=== PATIENT | male | born 1975 | race Caucasian/White ===

== ENCOUNTER 2016-10-30 19:52 | Inpatient (IN) | payer OTHER ==
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
[2016-10-31 00:27] VITALS: RESP 16
[2016-10-31] MEDS ORDERED: ZIPRASIDONE 20 MG VIAL IM PRN (00:40)
[2016-10-31] MEDS ORDERED: MAGNESIUM HYDROXIDE 2,400 MG/10 ML CUP PO PRN (00:40)
[2016-10-31] MEDS ORDERED: LORazepam 1 MG TAB PO PRN (00:40)
[2016-10-31] MEDS ORDERED: MAG HYDROX/AL HYDROX/SIMETH 30 ML CUP PO PRN (00:40)
[2016-10-31] MEDS: ACETAMINOPHEN TAB 325 MG TAB PO PRN ×2 (01:15→08:45)
[2016-10-31] MEDS: NICOTINE 14MG/24HR PATCH TRANSDERM SCH (08:44)
[2016-10-31 09:58] LABS: Basophils % (A) 1 %; CH 29.7; CHCM 34.4; Eosinophils # (A) 0.1 k/uL (0-0.7); Eosinophils % (A) 2 %; HCT 45.3 % (39.0-53.0); HDW 2.57; HGB 15.3 gm/dL (13.0-17.5); Luc # (Auto) 0.08; Luc % (Auto) 2; Lymphocytes # (A) 1.4 k/uL (1.0-4.8); Lymphocytes % (A) 24 %; MCH 29.4 pg (25.0-35.0); MCHC 33.8 g/dL (31.0-37.0); MCV 86.9 fL (80.0-100.0); Mean Platelet Volume 6.2; Monocytes # (A) 0.4 k/uL (0-1.0); Monocytes % (A) 6 %; Neutrophils # (A) 3.7 k/uL (1.3-7.7); Neutrophils % (A) 65 %; RBC 5.21 m/uL (4.30-5.90); WBC 5.7 k/uL (3.8-10.6); WBC (Perox) 5.62
[2016-10-31] MEDS: FLUoxetine HCL 20 MG CAP PO SCH (13:03)
--- NOTE | 2016-10-31 21:50 | CONS ---
DATE OF CONSULTATION: 10/31/2016. REASON FOR CONSULTATION: Medical management requested by Dr. Shelton. CONSULTATION: This is a 41-year-old patient of Dr. Shelton who is rather depressed with some suicidal ideation; hence admitted for the same. Patient had multiple traumas in the past; has been diagnosed with sleep apnea ( ) insurance change is not using CPAP machine. No other medical history. REVIEW OF SYSTEMS: CONSTITUTIONAL: None. HEENT: None. RESPIRATORY: None. CARDIOVASCULAR: None. GASTROINTESTINAL: None. GENITOURINARY: None. MUSCULOSKELETAL: None. DERMATOLOGIC: None. HEMATOLOGIC: None. LYMPHATICS: None. PSYCHIATRY: Depressed. NEUROLOGICAL: None. PAST HISTORY: Sleep apnea, MRSA infection. PAST SURGICAL HISTORY: 1. Orthopedic surgery. 2. Fractured nasal bones. 3. ACL, right leg. PAST PSYCHIATRIC HISTORY: Depression, suicide attempt in the past. SOCIAL HISTORY: Rarely smokes. . Works in manufacturing. FAMILY HISTORY: Brother had arrhythmias. HOME MEDICATIONS: None. ALLERGIES: NONE. On examination, temperature 98, pulse 55, respiration 16, blood pressure 115/71, pulse ox 97% on room air. GENERAL APPEARANCE: Well built; BMI of 35.9. Sitting up. Comfortable. EYES: Pupils equal. Conjunctivae normal. HEENT: External appearance of nose and ears normal. Oral cavity normal. NECK: JVD not raised. Mass not palpable. RESPIRATORY: Effort normal. Lungs are clear. CARDIOVASCULAR: First and second sounds normal. No edema. ABDOMEN: Soft, nontender. Liver and spleen not palpable. LYMPHATIC: No lymph node palpable in neck or axillae. PSYCHIATRIC: Alert and oriented x3. Mood and affect normal. INVESTIGATIONS: White count 5.7, hemoglobin 15.3, platelets 331. TSH 0.896. Urine drug screen negative. ASSESSMENT: 1. Obstructive sleep apnea; patient does not use a CPAP machine. 2. Obesity; body mass index of 35.9. 3. Major depression with suicidal ideation. PLAN: Patient should follow up with Dr. Shelton to try to establish and get his CPAP machine. Should see a dietitian for weight loss measures. Go on an 1800-calorie diet. Thank you, Dr. Richter.
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
[2016-11-01 07:50] LABS: ALT 44 U/L (21-72); AST 31 U/L (17-59); Alkaline Phosphatase 62 U/L (38-126); Anion Gap 11 mmol/L; Blood Urea Nitrogen 15 mg/dL (9-20); Calcium 9.8 mg/dL (8.4-10.2); Carbon Dioxide 27 mmol/L (22-30); Chloride 105 mmol/L (98-107); Glucose 87 mg/dL (74-99); Non-African American GFR(MDRD) >60 (>60 ml/min/1.73 sqM); Potassium 4.4 mmol/L (3.5-5.1); Sodium 143 mmol/L (137-145); Total Bilirubin 0.6 mg/dL (0.2-1.3); Total Protein 7.3 g/dL (6.3-8.2)
[2016-11-01] MEDS: NICOTINE 14MG/24HR PATCH TRANSDERM SCH (09:43)
[2016-11-01] MEDS: FLUoxetine HCL 20 MG CAP PO SCH (09:43)
[2016-11-02] MEDS: NICOTINE 14MG/24HR PATCH TRANSDERM SCH (08:24)
[2016-11-02] MEDS: FLUoxetine HCL 20 MG CAP PO SCH (08:24)
--- NOTE | 2016-11-02 13:33 | PN ---
DATE OF SERVICE: 11/01/2016 CHIEF COMPLAINT: The patient was depressed. He was suicidal. His documented in a petition that he had tied a rope in the garage with a plan to hang himself. INTERVAL HISTORY: Patient has been doing fair. He had a quiet evening last evening. He slept fair. It is noted that yesterday he attended groups though he seemed to show low energy and did not make too much effort to participate today. In group he showed a little more responsiveness to the group situation. He has not had any problems with start of Prozac. He did say he had some feelings in the day of a little tremor, more in his body than anywhere else. He said it was not significant and then seemed to pass. He was not sure if it was related to the medicine or just other issues. He noted that he did not sleep that well last night and that may have been part of the problem. He has not had any GI issues other than he does not feel he gets enough food at meals. He was visiting with his when I saw him. The plan is for the couple to have a family meeting with the group social worker tomorrow. I reviewed my history with the patient and . She was in agreement with what was documented. She did not identify any immediate issues of concern beyond what our focus has been during his stay. It is noted that the reported the 2 children are eager for father to return home. The patient has not had change in his general health. He tolerates his psychotropic medication. MENTAL STATUS: Patient sat without restlessness. Eye contact was fair. Psychomotor activity was slow. Speech was monotone. He answered questions with brief responses. His thoughts were clear. He was not spontaneous or interactive. His affect was blunted. His mood reserved. He was somewhat distressed. ASSESSMENT: I will continue the current diagnosis and treatment plan. Continue psychotropic medications the same. He will continue Prozac 20 mg a day. I reviewed treatment issues relating to start up of an antidepressant. Will have a family meeting tomorrow and begin working on discharge planning.
[2016-11-02 17:34] LABS: Appearance,Urine Clear (Clear); Bilirubin,Urine Negative (Negative); Glucose,Urine (UA) Negative (Negative); Ketones,Urine Negative (Negative); Leukocyte Esterase,Urine Negative (Negative); Nitrite,Urine Negative (Negative); Protein,Urine Negative (Negative); Specific Gravity,Urine 1.001 (1.001-1.035); UA Billing (MACRO vs. MICRO) CHEM; Urobilinogen,Urine <2.0 mg/dL (<2.0)
[2016-11-03 06:19] VITALS: BP 117/57; PULSE 71; TEMP 98
[2016-11-03] MEDS: FLUoxetine HCL 20 MG CAP PO SCH (08:41)
[2016-11-03] MEDS: NICOTINE 14MG/24HR PATCH TRANSDERM SCH (08:42)
--- NOTE | 2016-11-03 09:39 | PN ---
DATE OF SERVICE: 11/02/2016 CHIEF COMPLAINT: The patient was depressed. He was suicidal. His documented in a petition that he had a rope tied in the garage with a plan to hang himself. INTERVAL HISTORY: Patient has been doing fairly well, he had a quiet evening last night. He has been attending groups. He slept better through the night. Today he has been up and about. He said that he met with the psychotherapist social worker and they looked at plans towards discharge. The patient does have some limited therapy sessions available through her work, though at this point one option is for them to be referred to her work therapy program and from there, get guided towards further treatment options. The patient says that his is acknowledging some need for therapy, including possibly anger management. Patient himself said he is open for couple's therapy. He seems to be doing better in his mood. He has a better outlook. He comes out in the day area. He will interact with others. He has not had change in his general health. He tolerates his psychotropic medications. MENTAL STATUS: Patient gave good eye contact. Psychomotor activity was a little slow. Speech was somewhat monotone. He answered questions with direct responses. His thoughts were clear. His affect was a little blunted. His mood reserved. He did not appear to be significantly distressed. ASSESSMENT: I will continue current diagnosis and treatment plan. Will continue psychotropic medications the same. The patient appears to be making progress. We will look to coordinate with outpatient resources for followup care. Would consider discharge early in the week.
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
== END 2016-11-03 13:32 | disposition home or self-care (01) | DRG 885 ==
LOC: EC 19:52 → 3MHU 23:07
PROVIDERS: ADMIT Psychiatry & Neurology Psychiatry; ATTEND Psychiatry & Neurology Psychiatry
DX: F33.8 Other recurrent depressive disorders (principal); R45.851 Suicidal ideations; E66.9 Obesity, unspecified; F43.10 Post-traumatic stress disorder, unspecified; G47.33 Obstructive sleep apnea (adult) (pediatric); Z68.35 Body mass index [BMI] 35.0-35.9, adult; Z79.899 Other long term (current) drug therapy; Z86.14 Personal history of Methicillin resistant Staphylococcus aureus infection; Z87.891 Personal history of nicotine dependence
CPT/HCPCS: 80053; 80306; 81003; 82075; 84443; 85025

== ENCOUNTER → 2018-08-16 | Outpatient (CLI) | payer BC ==
--- NOTE | 2018-08-16 16:12 | US ---
EXAMINATION TYPE: US kidneys/renal and bladder DATE OF EXAM: 08/16/2018 COMPARISON: NONE CLINICAL HISTORY: N50.819 Testicular Pain, R31.9 Blood In urine. EXAM MEASUREMENTS: Right Kidney: 11.4 x 6.3 x 5.8 cm Left Kidney: 12.3 x 6.4 x 6.3 cm Right Kidney: No hydronephrosis or masses seen Left Kidney: No hydronephrosis. Echogenic foci visualized upper pole measuring 0.6 cm, with history n on-obstructing stone Bladder: wnl Bilateral Jets seen: Yes There is no evidence for hydronephrosis at this point in time. No masses are identified. The urinar y bladder is anechoic. Bilateral ureteral jets are seen. IMPRESSION: Nonobstructing left renal calculi measuring 6 mm. No hydronephrosis of either kidney.
--- NOTE | 2018-08-16 16:29 | US ---
EXAMINATION TYPE: US scrotum with doppler. Grayscale and color Doppler Duplex imaging performed of t he scrotum. DATE OF EXAM: 08/16/2018 COMPARISON: NONE CLINICAL HISTORY: N50.819 Testicular Pain, R31.9 Blood In urine. EXAM MEASUREMENTS: TESTICLES: Right Testicle: 4.4 x 1.9 x 2.8 cm Left Testicle: 3.8 x 2.0 x 3.1 cm EPIDIDYMIS HEAD: Right Epididymis: 1.2 cm Left Epididymis: 0.7 cm Doppler performed to assess for testicular vascularity; good bilateral color flow and waveforms are s een. There is no evidence of testicular torsion. Presence of hydroceles: Small amount of fluid on the left Presence of varicoceles: Yes, bilaterally Right epididymal cyst visualized measuring 1.2 x 1.4 x 2.2 cm . This appears simple. IMPRESSION: 1. Bilateral varicoceles are identified. Given the bilateral presence CT abdomen and pelvis is recomm ended to exclude retroperitoneal obstructing mass. 2. Benign-appearing right epididymal cyst and small left hydrocele are incidentally noted. 3. No current evidence of testicular torsion at the time of examination.
== END ==
LOC: RADUSWWP 15:41
PROVIDERS: ATTEND Family Medicine
DX: N20.0 Calculus of kidney (principal); I86.1 Scrotal varices; N50.3 Cyst of epididymis; N43.3 Hydrocele, unspecified
CPT/HCPCS: 76770; 76870; 93975

== ENCOUNTER → 2018-09-30 | Outpatient (CLI) | payer BC ==
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
== END ==
LOC: SLEEP 14:30
PROVIDERS: ATTEND Internal Medicine
DX: G47.33 Obstructive sleep apnea (adult) (pediatric) (principal); E66.9 Obesity, unspecified; Z98.890 Other specified postprocedural states
CPT/HCPCS: 99211

== ENCOUNTER → 2019-04-13 | Outpatient (CLI) | payer BC ==
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
== END | disposition home or self-care (01) ==
LOC: SLEEP 16:22
PROVIDERS: ATTEND Internal Medicine
DX: G47.33 Obstructive sleep apnea (adult) (pediatric) (principal); E66.9 Obesity, unspecified; Z98.890 Other specified postprocedural states; Z87.81 Personal history of (healed) traumatic fracture

== ENCOUNTER → 2019-06-30 | Outpatient (CLI) | payer BC ==
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
== END | disposition home or self-care (01) ==
LOC: SLEEP 15:31
PROVIDERS: ATTEND Internal Medicine
DX: G47.33 Obstructive sleep apnea (adult) (pediatric) (principal); E66.9 Obesity, unspecified; Z68.38 Body mass index [BMI] 38.0-38.9, adult; Z99.89 Dependence on other enabling machines and devices; Z87.39 Personal history of other diseases of the musculoskeletal system and connective tissue; Z98.890 Other specified postprocedural states

== ENCOUNTER → 2019-09-07 | Outpatient (CLI) | payer BC ==
--- NOTE | 2019-09-07 13:56 | US ---
EXAMINATION TYPE: US thyroid st tissue head/neck DATE OF EXAM: 09/07/2019 COMPARISON: NONE CLINICAL HISTORY: R09.89 specified symptoms and signs. GLAND SIZE: Right Lobe: 5.2 x 1.8 x 1.9 cm Overall Parenchyma: homogenous Left Lobe: 4.4 x 1.7 x 2.0 cm Overall Parenchyma: homogeneous Isthmus Thickness: 0.4 cm NODULES RIGHT: # of nodules measured on right: 0 LEFT: # of nodules measured on left: 0 ISTHMUS: # of nodules measured in the isthmus: 0 Bilateral neck scanned, no evidence of lymphadenopathy. IMPRESSION: Mildly enlarged right thyroid lobe. Otherwise unremarkable study.
--- NOTE | 2019-09-07 13:58 | XR ---
EXAMINATION TYPE: XR lumbar spine 2 or 3V DATE OF EXAM: 09/07/2019 COMPARISON: 05/01/2009 HISTORY: M [age] low [age] pain TECHNIQUE: Three-view lumbar spine FINDINGS: There 5 lumbar-type vertebral bodies. The pedicles are intact. Disc space narrowing posteri martha at L5-S1 is present. Remaining disc heights are preserved. Vertebral body heights are preserved. Spina bifida occulta is present at S1. No significant interval changes are evident. IMPRESSION: 1. Mild degenerative disc changes posterior L5-S1.
== END | disposition home or self-care (01) ==
LOC: RADUSWWP 12:51
PROVIDERS: ATTEND Nurse Practitioner Adult Health
DX: E04.9 Nontoxic goiter, unspecified (principal); M47.817 Spondylosis without myelopathy or radiculopathy, lumbosacral region
CPT/HCPCS: 72100; 76536

== ENCOUNTER 2020-10-01 09:12 | Emergency (ER) | payer BC ==
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
--- NOTE | 2020-10-01 10:55 | XR ---
EXAMINATION TYPE: XR lumbosacral spine min 4V DATE OF EXAM: 10/01/2020 COMPARISON: 09/07/2019 HISTORY: Back pain TECHNIQUE: 5V lumbar spine FINDINGS: There are 5 lumbar-type vertebral bodies. The pedicles are intact. No spondylolytic defects are evident. Facets are normal. Disc heights are preserved. Minimal degenerative disc changes in the posterior L5-S1 disc space is less prominent than prior. Vertebral body heights are preserved. No si gnificant interval change is evident. IMPRESSION: 1. No acute osseous abnormality lumbar spine
[2020-10-01 11:14] LABS: Appearance,Urine Clear (Clear); Bilirubin,Urine Negative (Negative); Blood,Urine Negative (Negative); Color,Urine Yellow; Glucose,Urine (UA) Negative (Negative); Ketones,Urine Negative (Negative); Leukocyte Esterase,Urine Negative (Negative); Nitrite,Urine Negative (Negative); PH, Urine 5.5 (5.0-8.0); Protein,Urine Trace (Negative); Specific Gravity,Urine 1.027 (1.001-1.035); Urobilinogen,Urine <2.0 mg/dL (<2.0)
[2020-10-01 12:21] LABS: Basophils % (A) 1 %; Eosinophils # (A) 0.1 k/uL (0-0.7); Eosinophils % (A) 2 %; HCT 45.3 % (39.0-53.0); HGB 15.2 gm/dL (13.0-17.5); Lymphocytes # (A) 1.2 k/uL (1.0-4.8); Lymphocytes % (A) 36 %; MCH 29.2 pg (25.0-35.0); MCHC 33.6 g/dL (31.0-37.0); MCV 87.1 fL (80.0-100.0); Mean Platelet Volume 6.8; Monocytes # (A) 0.4 k/uL (0-1.0); Monocytes % (A) 10 %; Neutrophils # (A) 1.7 k/uL (1.3-7.7); Neutrophils % (A) 50 %; Platelet Count 231 k/uL (150-450); RBC 5.21 m/uL (4.30-5.90); RDW 12.9 % (11.5-15.5); WBC 3.5 k/uL (3.8-10.6)
[2020-10-01 12:29] LABS: ALT 45 U/L (4-49); AST 29 U/L (17-59); African American GFR (CKD) >90 (>60 ml/min/1.73 sqM); Albumin 4.4 g/dL (3.5-5.0); Alkaline Phosphatase 86 U/L (38-126); Anion Gap 8 mmol/L; Blood Urea Nitrogen 16 mg/dL (9-20); Calcium 9.2 mg/dL (8.4-10.2); Carbon Dioxide 26 mmol/L (22-30); Chloride 104 mmol/L (98-107); Glucose 90 mg/dL (74-99); Non-African American GFR(CKD) >90 (>60 ml/min/1.73 sqM); Potassium 4.5 mmol/L (3.5-5.1); Sodium 138 mmol/L (137-145); Total Bilirubin 0.5 mg/dL (0.2-1.3)
[2020-10-01 12:46] VITALS: BP 114/68; PULSE 67; RESP 18; TEMP 98.7
--- NOTE | 2020-10-01 12:54 | CT ---
EXAMINATION TYPE: CT abdomen pelvis wo con DATE OF EXAM: 10/01/2020 COMPARISON: None INDICATION: Back pain and groin pain DLP: 1170.4 mGycm, Automated exposure control for dose reduction was used. CONTRAST: 0 mL of Isovue 300. Study performed without Oral Contrast TECHNIQUE: Axial images were obtained from above the diaphragm to the pubic rami in the axial plane a t 5 mm thick sections. Reconstructed images are reviewed on the computer in the coronal plane. FINDINGS: Limited CT sections are obtained the lung bases. There is minimal infiltrate in the posterior depend ent left lung base. Correlate for atelectasis. CT ABDOMEN: Liver: Normal Spleen: Normal Pancreas: Normal Adrenal glands: The adrenal glands are normal. Gallbladder: Normal Kidneys: No masses are evident. No hydronephrosis is present. No cysts are present. There is a non obstructing 0.4 cm superior pole left renal stone. Aorta: Normal Inferior vena cava: Normal. CT PELVIS: Loops of bowel within the abdomen and pelvis are normal. Study is performed without oral contrast li miting evaluation. Appendix: Normal as visualized. Urinary bladder: Normal. Genitourinary structures: Prostate is slightly prominent. Osseous structures: No suspicious lytic or sclerotic lesions. No suspicious spinal canal stenosis lum bar spine is evident. IMPRESSIONS: 1. Nonobstructive superior pole left renal stone.
== END 2020-10-01 13:47 | disposition home or self-care (01) ==
LOC: EC 09:12
DX: M54.31 Sciatica, right side (principal); G47.33 Obstructive sleep apnea (adult) (pediatric); Z99.89 Dependence on other enabling machines and devices; Z86.14 Personal history of Methicillin resistant Staphylococcus aureus infection
CPT/HCPCS: 36415; 72110; 74176; 80053; 81003; 85025; 99285

== ENCOUNTER 2020-11-09 07:24 | Emergency (ER) | payer BC, OTHER ==
[2020-11-09 07:31] VITALS: BP 142/87; PULSE 59; RESP 18; TEMP 97.9
[2020-11-09] MEDS ORDERED: DIPH,PERTUS(ACELL)TETVAC-LF 0.5 ML VIAL IM ONE (07:47)
[2020-11-09] MEDS ORDERED: LIDOCAINE 1% INJ 10MG/ML (20 ML MDV) SQ ONE (07:47)
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
[2020-11-09] MEDS ORDERED: BACITRACIN OINT 1 EACH PACKET TOPICAL ONE (08:18)
--- NOTE | 2020-11-09 08:56 | XR ---
EXAMINATION TYPE: XR finger RT DATE OF EXAM: 11/09/2020 COMPARISON: NONE HISTORY: Pain TECHNIQUE: Three views are submitted. FINDINGS: Tiny bony density adjacent to the base of the proximal phalanx of the first digit. Well-corticated de nsity adjacent to the base of the first metacarpal. IMPRESSION: 1. Tiny punctate areas of density seen adjacent to the first MCP joint could represent tiny foreign b kumar versus tiny chip or avulsion fracture correlate clinically.
== END 2020-11-09 08:40 | disposition home or self-care (01) ==
LOC: EC 07:24
DX: S61.011A Laceration without foreign body of right thumb without damage to nail, initial encounter (principal); I20.9 Angina pectoris, unspecified; G47.30 Sleep apnea, unspecified; W31.89XA Contact with other specified machinery, initial encounter; Y92.89 Other specified places as the place of occurrence of the external cause; Y99.0 Civilian activity done for income or pay
CPT/HCPCS: 73140; 90715; 99282; 12002; 90471; J2001

== ENCOUNTER → 2023-09-07 | Outpatient (CLI) | payer BC ==
--- NOTE | 2023-09-08 08:16 | CT ---
EXAMINATION TYPE: CT heart w calcium score DATE OF EXAM: 09/07/2023 COMPARISON: None HISTORY: Screening for cardiovascular disorder. 213.9 CT DLP: 288.5 mGycm Automated exposure control for dose reduction was used. CT CALCIUM SCORING Coronary calcium is a marker for plaque (fatty deposits) in a blood vessel or atherosclerosis (harden ing of the arteries). The presence and amount of calcium detected in a coronary artery by the CT sca n, indicates the presence and amount of atherosclerotic plaque. These calcium deposits appear years before the development of heart disease symptoms such as chest pain and shortness of breath. A calcium score is computed for each of the coronary arteries based upon the volume and density of th e calcium deposits. This can be referred to as your calcified plaque burden. It does not correspond directly to the percentage of narrowing in the artery but does correlate with the severity of the un derlying coronary atherosclerosis. PROCEDURE TECHNIQUE - Prospective Gating was used. Slice thickness: 3mm. Density threshold (HU): 130, Pixel threshold: 3, Algorithm: discrete. RESULTS Region: LM Calcium Score ([place]): 0 Volume (mm3): 0 Mass (g): 0 Region: RCA Calcium Score ([place]): 0 Volume (mm3): 0 Mass (g): 0 Region: LAD Calcium Score ([place]): 165.67 Volume (mm3): 136.46 Mass (g): 45.49 Region: CX Calcium Score ([place]): 16.09 Volume (mm3): 16.09 Mass (g): 5.36 Region: PDA Calcium Score ([place]): 0 Volume (mm3): 0 Mass (g): 0 Total: Calcium Score ([place]): 181.76 Volume (mm3): 152.54 Mass (g): 50.85 TOTAL CALCIUM SCORE: 181.76 IMPRESSION: Calcium Score: 181.76 Implication: Definite, at least moderate atherosclerotic plaque. Risk of Coronary Artery Disease: Mild coronary artery disease highly likely, significant narrowings p ossible CALCIUM SCORE IMPLICATION RISK OF C ORONARY ARTERY DISEASE 0 No identifiable plaque Very low, generally less than 5% 1-10 Minimal identifiable plaque Very unlikely, less than 10% 11-100 Definite, at least mild atherosclerotic plaque Mild or m inimal coronary narrowings likely 101-400 Definite, at least moderate atherosclerotic plaque Mild coronary ar juan antonio disease highly likely, significant narrowing possible 401 or Higher Extensive atherosclerotic plaque High lik elihood of at least one significant coronary narrowing
== END | disposition home or self-care (01) ==
LOC: RADCTMAIN 16:31
PROVIDERS: ATTEND Family Medicine
DX: Z13.6 Encounter for screening for cardiovascular disorders (principal); I25.10 Atherosclerotic heart disease of native coronary artery without angina pectoris; Z82.49 Family history of ischemic heart disease and other diseases of the circulatory system
CPT/HCPCS: 75571